=== PATIENT | male | born 1990 | race Two or more races ===

== ENCOUNTER 2024-07-15 03:46 | Emergency (ER) | payer MEDICAID, SELFPAY ==
[2024-07-15 03:47] VITALS: BMI 28.1
[2024-07-15 04:15] VITALS: BP 142/58; PULSE 91; RESP 17; TEMP 36.6; O2SAT 97
--- NOTE | 2024-07-15 04:22 | XR_ITS ---
Examination: PA lateral chest 2 views Technique: Upright PA lateral chest 2 views Exam date and time: July 15, 2024 0427 hrs. Comparison 05/07/2019 Indications: Asthma history with coughing difficulty reading one week. Findings: Normal heart size. No lobar pneumonia or pulmonary edema Intact osseous structures Impression: No lobar pneumonia
--- NOTE | 2024-07-15 04:22 | PD.EDRME ---
Rapid Medical Screening Exam RME Arrival date/time: 07/15/24 03:46 34-year-old male with past medical history of asthma presents emergency department complaining of productive cough, shortness of breath, and congestion for over a week. Chief Complaint: Shortness of Breath/Dyspnea Time Seen by Provider: 07/15/24 04:22 Vital signs: Vital Signs Temperature 97.8 F 07/15/24 04:15 Pulse Rate 91 07/15/24 04:15 Respiratory Rate 17 07/15/24 04:15 Blood Pressure 142/58 H 07/15/24 04:15 Pulse Oximetry (%) 97 07/15/24 04:15 Oxygen Delivery Method Room Air 07/15/24 04:15 Vital signs reviewed by provider: Yes
[2024-07-15 04:38] VITALS: PULSE 84
[2024-07-15] MEDS: IPRATROPIUM RT 0.5 MG/ 2.5 ML NEBU 1 MG INH (04:38)
[2024-07-15] MEDS: ALBUTEROL RT 2.5 MG/0.5 ML NEBU 5 MG INH (04:38)
[2024-07-15 04:41] VITALS: PULSE 85; RESP 18; O2SAT 100
[2024-07-15 06:24] VITALS: BP 147/76; PULSE 69; RESP 17; TEMP 36.6; O2SAT 96
--- NOTE | 2024-07-15 06:28 | PD.EDSOB ---
ED SOB =RME/HPI General Chief Complaint: Shortness of Breath/Dyspnea Stated Complaint: TROUBLE BREATHING, COUGH Time Seen by Provider: 07/15/24 04:22 Arrival date/time: 07/15/24 03:46 34-year-old male with history of asthma presents to the emergency department today complaints of wheezing and cough x 1 week patient reports that he is out of his inhaler Limitations: no limitations RME / HPI RME / HPI Narrative: 07/15/24 03:46 34-year-old male with past medical history of asthma presents emergency department complaining of productive cough, shortness of breath, and congestion for over a week. Related Data Previous Rx's ?Medication ?Instructions ?Recorded fluticasone 100 mcg-salmeterol 50 1 puff inhalation BID #60 ea 08/27/18 mcg/dose blistr powdr for inhalation (Advair Diskus) albuterol sulfate 90 mcg/actuation 2 puff inhalation Q6H PRN 07/15/24 aerosol inhaler (Ventolin HFA) shortness of breath or wheezing #8.5 grams fluticasone 100 mcg-salmeterol 50 1 inh inhalation BID #60 ea 07/15/24 mcg/dose blistr powdr for inhalation (Advair Diskus) prednisone 10 mg tablet 30 mg (3 x 10 mg) PO BID 3 days 07/15/24 #18 tabs Allergies Allergy/AdvReac Type Severity Reaction Status Date / Time No Known Allergies Allergy Verified 07/15/24 03:47 Review of Systems Review of Systems Systems Reviewed: All systems reviewed, normal except as documented Constitutional Constitutional: Reports system reviewed and no additional complaints, except as documented, Denies fever(s) and Denies headache(s) Eyes Eyes: Reports system reviewed and no additional complaints, except as documented and Denies blurry vision ENT Ears, Nose, Mouth, and Throat: Reports system reviewed and no additional complaints, except as documented, Denies headache(s), Denies nasal congestion and Denies nasal discharge Cardiovascular Cardiovascular: Reports system reviewed and no additional complaints, except as documented, Denies chest pain and Reports dyspnea Respiratory Respiratory: Reports system reviewed and no additional complaints, except as documented, Reports chest congestion, Reports cough, Reports dyspnea and Reports wheezing Gastrointestinal Gastrointestinal: Reports system reviewed and no additional complaints, except as documented and Denies abdominal pain Integumentary/Breasts Skin/Breast: Reports system reviewed and no additional complaints, except as documented and Denies rash Neurologic Neurologic: Reports system reviewed and no additional complaints, except as documented, Reports as per HPI and Denies headache(s) Allergic/Immunologic Allergic/Immunologic: Reports wheezing Past Medical History Past Medical History CARDIAC: Positive Hypertension; Negative Congestive Heart Failure RESPIRATORY: Negative Chronic Obstructive Pulmonary Disease (COPD) GENITOURINARY: Negative Renal Disease ENDOCRINE: Negative Diabetes Mellitus Type 1 or Diabetes Mellitus Type 2 PSYCHO/SOCIAL: Positive Depression and Anxiety Social History SMOKING STATUS: Current some day smoker SUBSTANCE USE: marijuana ED Exam General Limitations: Present no limitations General appearance: Present alert and in no apparent distress Head Head exam: Present atraumatic Eye Eye exam: Present normal appearance, PERRL and EOMI; Absent conjunctival injection ENT ENT exam: Present normal exam, normal oropharynx and mucous membranes moist Neck Neck exam: Present normal inspection, full ROM and trachea midline Chest Chest inspection: Present normal inspection and symmetric chest wall rise Respiratory Respiratory exam: Present wheezes; Absent respiratory distress, stridor, accessory muscle use or prolonged expiratory phase Cardiovascular Cardiovascular exam: Present regular rate, normal rhythm and normal heart sounds Abdominal Exam Abdominal exam: Present soft and normal bowel sounds Extremities Exam Extremities exam: Present normal inspection and full ROM Back Exam Back exam: Present normal inspection and full ROM Neurological Exam Neurological exam: Present alert, oriented X3, CN II-XII intact, normal gait and reflexes normal; Absent motor sensory deficit Psychiatric Psychiatric exam: Present normal affect and normal mood Skin Skin exam: Present warm, dry, intact and normal color Course Quality Measures none Orders Category Date Time Status Bedside COVID-19 Antigen Test NOW Care 07/15/24 04:22 Completed Bedside Influenza A&B Antigen Test NOW Care 07/15/24 04:22 Completed XR chest 2V Stat Exams 07/15/24 04:22 Taken ALBUTEROL RT 0.5ml [Proventil Rt 0.5ml] Med 07/15/24 04:22 Discontinued 5 mg INH X1 ONE Ipratropium Levant Rt Sonam [Atrovent Rt Sonam] Med 07/15/24 04:22 Discontinued 1 mg INH X1 ONE Sodium Chloride Rt Sonam 0.9% [NS Rt Sonam 0.9%] Med 07/15/24 04:22 Active 3 ml INH PRN PRN Vital Signs Vital signs: Vital Signs Temperature 97.8 F 07/15/24 04:15 Pulse Rate 91 11/12/24 04:15 Respiratory Rate 17 07/15/24 04:15 Blood Pressure 142/58 H 07/15/24 04:15 Pulse Oximetry (%) 97 07/15/24 04:15 Oxygen Delivery Method Room Air 07/15/24 04:15 O2 saturation 97% room air within normal limits Shortness of Breath / Dyspnea MDM Narrative MDM Narrative:: 34-year-old male with history of asthma presents to the emergency department today complaints of wheezing and cough x 1 week patient reports that he is out of his inhaler On exam patient well-appearing patient does not appear ill or toxic patient does not appear in acute distress At time of my initial evaluation of this patient patient is already received breathing treatments x-ray flu and COVID Flu and COVID are negative chest x-ray per my interpretation does not show any acute pneumonic infiltrates Patient has no wheezing at this time and reports that he feels better Patient discharged home in no distress to follow-up with primary care doctor in the next 24 to 48 hours and for any worsening symptoms to return to the ER immediately Patient data External records reviewed:: [facility] previous records Clinical information provided by:: patient Social determinants that could affect healthcare access:: none Patient has the following chronic illnesses:: None How is presenting disease/condition affected by chronic disease/condition?: no chronic disease Evaluation data The following diagnostics were reviewed and interpreted by me:: lab results and radiology exam(s) Lab and/or radiology exams considered but not ordered:: Labs and radiology obtained Interpretation Summary: Reviewed by me Medications / Prescriptions Medications or Prescriptions considered but not ordered:: Given Medication administrations:: Medication Administration History Sodium Chloride (Sodium Chloride Rt Sonam 0.9% 3 Ml Nebu) 3 ml INH PRN PRN PRN Reason: SOLN Stop: 08/14/24 04:21 Discontinued Medications Albuterol (Albuterol Rt 2.5 Mg/0.5 Ml Nebu) 5 mg INH X1 ONE Stop: 07/15/24 04:23 Last Admin: 07/15/24 04:38 Dose: 5 mg Documented By: FAIZAN Ipratropium Levant (Ipratropium Rt 0.5 Mg/ 2.5 Ml Nebu) 1 mg INH X1 ONE Stop: 07/15/24 04:23 Last Admin: 07/15/24 04:38 Dose: 1 mg Documented By: PAR Given Consultations Consultation(s) initiated? (list below): No Diagnosis Shortness of Breath Differential Diagnosis: acute exacerbation of chronic obstructive airways disease and asthma with exacerbation Most likely diagnosis given after review of the tests above:: Asthma Admission Indicated Admission indicated?: not indicated Admission Request Was there a request for admission?: No Disposition Plan Disposition Plan: Discharge Discharge Attestation Discharge Attestation: The patient and all family members were given an opportunity to ask questions and understood the discharge instructions. Discharge instructions specifically effects, indications for sooner follow up or return to the emergency department, and the expected course of current diagnosis. Patient condition: Stable Discharge Plan Plan Patient Disposition: HOME (Self Care) Disposition Comment: Stable Prescriptions/Referrals Prescriptions/Med Rec: New albuterol sulfate [Ventolin HFA] 90 mcg/actuation HFA aerosol inhaler 2 puff inhalation Q6H PRN (Reason: shortness of breath or wheezing) Qty: 8.5 0RF prednisone 10 mg tablet 30 mg PO BID 3 Days Qty: 18 0RF fluticasone propion-salmeterol [Advair Diskus] 100-50 mcg/dose blister with device 1 inh inhalation BID Qty: 60 0RF No Action fluticasone propion-salmeterol [Advair Diskus] 100-50 mcg/dose blister with device 1 puff INH BID Qty: 60 0RF Referrals: Agatha Horton PA-C [Primary Care Provider] - 07/16/24 Problem List Clinical Impression: Asthma exacerbation Patient/Caregiver Discharge Instructions Education Materials: Asthma Additional Instructions: Please follow up with your primary care doctor in the next 24-48hrs for any worsening symptoms return here immediately Print Language: Hungarian Stand Alone Forms: Elena Award Info., Patient Portal Info Letter PA/RICK Supervising Physician LILY/RICK Supervising Physician: Dr russo
== END 2024-07-15 06:39 | disposition home or self-care (01) ==
PROVIDERS: Emergency Provider Emergency Medicine; PCP Physician Assistant
DX: J45.901 Unspecified asthma with (acute) exacerbation (principal); F17.210 Nicotine dependence, cigarettes, uncomplicated
CPT/HCPCS: 71046; 87400; 87811; 94640; 99283

== ENCOUNTER → 2025-04-06 | Outpatient (CLI) | payer MEDICAID, SELFPAY ==
--- NOTE | 2025-04-06 | XR_ITS ---
Examination: Shoulder,right, 3 views Technique: Shoulder AP internal rotation, AP external rotation, Y view shoulder, 3 views Exam date and time :April 06, 2025 1527 hours INDICATIONS: Right shoulder pain post injury one year ago. FINDINGS: Mild narrowing glenohumeral joint No shoulder fracture or dislocation No AC joint separation IMPRESSION: Mild narrowing glenohumeral joint
== END | disposition home or self-care (01) ==
PROVIDERS: PCP Physician Assistant; Referring Provider Physician Assistant; Visit Provider Physician Assistant
DX: M25.811 Other specified joint disorders, right shoulder (principal)
CPT/HCPCS: 73030